=== PATIENT | female | born 1970 | race Caucasian/White ===

== ENCOUNTER 2016-11-04 14:37 | Observation (INO) | payer OTHER ==
[~2016-11-04] VITALS: Ht 175.3 cm; Wt 98.7 kg
[2016-11-04 15:16] LABS: BLOOD UREA NITROGEN 11 mg/dL (7-18); CALCIUM 9.1 mg/dL (8.7-10.7); CARBON DIOXIDE 26 mmol/L (21-32); CREATININE 0.7 mg/dL (0.6-1.3); GLUCOSE,RANDOM 111 mg/dL (70-99); POTASSIUM 3.6 mmol/L (3.5-5.1); SODIUM 139 mmol/L (136-145)
[2016-11-04 15:19] LABS: BASO # 0.1 10_X3_uL (0.0-0.1); BASO % 0.5 % (0.1-1.2); EOS # 0.2 10_X3_uL (0.0-0.4); EOS % 1.4 % (0.7-5.8); GRAN # 7.4 10_X3_uL (1.6-6.1); GRAN % 66.2 % (34.0-71.1); HEMATOCRIT 45.2 % (34-45); HEMOGLOBIN 15.2 g/dL (11.2-15.7); LYMPH # 2.8 10_X3_uL (1.2-3.7); LYMPH % 24.9 % (19.3-51.7); MEAN CORPUSCULAR HEMOGLOBIN 30.8 pg (27.0-33.0); MEAN CORPUSCULAR HGB CONC 33.6 g/dL (32.0-36.0); MEAN CORPUSCULAR VOLUME 91.5 fL (79-95); MEAN PLATELET VOLUME 8.8 fl (7.5-11.5); MONO # 0.8 10_X3_uL (0.2-0.9); PLATELET COUNT 311 x10_3/uL (182-369); RED BLOOD COUNT 4.94 x10_6/uL (3.9-5.2); RED CELL DISTRIBUTION WIDTH 17.3 % (11.7-14.4); WHITE BLOOD COUNT 11.2 x10_3/uL (4.0-10.0)
[2016-11-04 17:19] LABS: PARTIAL THROMBOPLASTIN TIME 24.1 SECONDS (21.8-28.4); PROTHROMBIN TIME (PATIENT) 9.8 SECONDS (9.6-10.8)
[2016-11-04 21:49] LABS: CKMB 1.6 ng/ml (0.0-5.0)
[2016-11-04 22:00] LABS: TROP-I < 0.30 NG/ML (0.00-0.30)
[2016-11-05 04:36] LABS: CKMB 1.4 ng/ml (0.0-5.0)
[2016-11-05 04:38] LABS: TROP-I < 0.30 NG/ML (0.00-0.30)
== END 2016-11-05 10:11 | disposition home or self-care (01) ==
LOC: ER 14:37 → MS 16:32 → UNDODEPER 11-07 16:37
PROVIDERS: General Practice; ADMIT Family Medicine
DX: R07.89 Other chest pain (principal); I10 Essential (primary) hypertension; E03.9 Hypothyroidism, unspecified; F90.9 Attention-deficit hyperactivity disorder, unspecified type; F17.210 Nicotine dependence, cigarettes, uncomplicated; Z90.49 Acquired absence of other specified parts of digestive tract; Z98.51 Tubal ligation status; Z79.899 Other long term (current) drug therapy
CPT/HCPCS: 36415; 71010; 80048; 80061; 82550; 82553; 83036; 84443; 85025; 85379; 85610; 85730; 93005; 93041; 93306; 96372; 96374; 99070; 99285-25; G0378